=== PATIENT | male | born 1950 | race Caucasian/White ===

== ENCOUNTER 2022-05-31 09:23 | Outpatient (CLI) | payer MEDICARE, SELFPAY | END 2022-05-31 09:24 | disposition home or self-care (01) | PROVIDERS: PCP Family Medicine; Visit Provider Family Medicine | DX: Z00.00 Encounter for general adult medical examination without abnormal findings (principal); E78.5 Hyperlipidemia, unspecified; I10 Essential (primary) hypertension; R97.20 Elevated prostate specific antigen [PSA] | CPT/HCPCS: 80053; 80061; 82043; 82570 ==

== ENCOUNTER 2022-07-18 13:01 | Outpatient (CLI) | payer MEDICARE, SELFPAY | END 2022-07-18 13:02 | disposition home or self-care (01) | LOC: NFLDREF 07-21 13:18 | PROVIDERS: PCP Family Medicine; Referring Provider Family Medicine; Visit Provider Family Medicine | DX: R17 Unspecified jaundice (principal) | CPT/HCPCS: 80076; 82977 ==

== ENCOUNTER 2023-04-27 09:35 | Outpatient (CLI) | payer MEDICARE, SELFPAY | END 2023-04-27 09:36 | disposition home or self-care (01) | LOC: NFLDREF 04-30 11:09 | PROVIDERS: PCP Family Medicine; Referring Provider Family Medicine; Visit Provider Family Medicine | DX: Z00.00 Encounter for general adult medical examination without abnormal findings (principal); E78.5 Hyperlipidemia, unspecified; I15.8 Other secondary hypertension; I10 Essential (primary) hypertension; R97.20 Elevated prostate specific antigen [PSA] | CPT/HCPCS: 80053; 80061; 82043; 82570 ==

== ENCOUNTER 2024-08-11 07:26 | Outpatient (CLI) | payer MEDICARE, SELFPAY | END 2024-08-11 07:27 | disposition home or self-care (01) | LOC: NFLDREF 08-20 01:04 | PROVIDERS: PCP Physician Assistant Medical; Referring Provider Physician Assistant Medical; Visit Provider Physician Assistant Medical | DX: E78.5 Hyperlipidemia, unspecified (principal); I15.8 Other secondary hypertension | CPT/HCPCS: 80053; 80061; 84443 ==